=== PATIENT | male | born 1995 | race Caucasian/White ===

== ENCOUNTER → 2019-06-05 15:49 | Outpatient (CLI) | payer BC, SELFPAY ==
--- NOTE | 2019-06-05 | DI.ECHO.S_ITS ---
[facility] +---------+ : : [address] : [place] : : : : [id number] : : : : Phone: [phone]+ Echocardiogram Report + + :Name: PALOMO DARNELL Study Date: 06/05/2019 Height: 72 in : :[facility] Weight: 230 lb : : Gender: Male BSA: 2.3 m2 : :: 1995 Age: 24 yrs BP: 138/96 mmHg: :Reason For Study: AFIB : :Ordering Physician: Bryant Iqbal : :[place] Performed By: Edwar Voss : :Referring: BRYANT COYNE : + + Interpretation Summary 1) Normal left ventricular size, thickness, wall motion, and systolic function (EF 55-60%). 2) Normal right ventricular size and function. 3) No significant valvular abnormalities. 4) No prior Echo available for comparison. Procedure: A two-dimensional transthoracic echocardiogram with color flow and Doppler was performed. The study quality was technically adequate. There is no prior echocardiogram noted for this patient. The patient was in normal sinus rhythm during the exam. Left Ventricle: The left ventricle is normal in size. There is normal left ventricular wall thickness. The ejection fraction is estimated to be 55-60%. Left ventricular systolic function is normal. Left ventricular wall motion is normal. Right Ventricle: The right ventricle is normal in size and function. Atria: The left atrial size is normal. Right atrial size is normal. The interatrial septum is intact with no evidence for an atrial septal defect. Mitral Valve: The mitral valve is normal in structure and function. There is trace mitral regurgitation. Aortic Valve: The aortic valve is trileaflet. The aortic valve opens well. There is no aortic valve stenosis. No aortic regurgitation is present. Tricuspid Valve: The tricuspid valve is normal in structure and function. There is trace tricuspid regurgitation. Right ventricular systolic pressure is estimated to be 6 mmHg plus the clinically estimated CVP which cannot be estimated on this exam. Pulmonic Valve: The pulmonic valve is normal in structure and function. There is trace pulmonic regurgitation. Great Vessels: The aortic root is normal size. The dimensions of the ascending aorta are normal. The pulmonary artery is normal size. The inferior vena cava was not well visualized. Pericardium/ Pleura There is no pericardial effusion. There is no pleural effusion. MMode/2D Measurements & Calculations LVIDd: 5.3 cm LVOT diam: 2.5 cm LVIDs: 3.6 cm Ao root diam: 3.5 cm FS: 32.0 % asc Aorta Diam: 3.0 cm EPSS: 0.95 cm Ao Arch Diam (Prox Trans): 2.7 cm IVSd: 0.97 cm LVPWd: 1.1 cm LV monet. diameter/BSA (cm/m^2): 2.4 LV sys. diameter/BSA (cm/m^2): 1.6 LA A2 area: 16.7 cm2 RA long axis: 4.7 cm LA A4 area: 20.7 cm2 RA area: 15.6 cm2 LA length (vol): 5.5 cm RA vol: 44.1 ml LA vol: 53.2 ml RA : 19.5 ml/m2 LA vol index: 23.5 ml/m2 TAPSE: 2.6 cm Doppler Measurements & Calculations Ao V2 max: 104.1 cm/sec LVOT Max Bry: 82.6 cm/sec Ao V2 mean: 81.2 cm/sec LV V1 max P.7 mmHg Ao max P.3 mmHg LV V1 VTI: 17.7 cm Ao mean P.8 mmHg JOZEF(I,D): 4.3 cm2 Ao V2 VTI: 19.8 cm JOZEF(V,D): 3.8 cm2 sev ratio: 0.89 JOZEF indexed to BSA (cm^2/m^2): 1.9 MV E max bry: 63.1 cm/sec TR max bry: 126.6 cm/sec MV A max bry: 50.7 cm/sec TR max P.4 mmHg MV E/A: 1.2 PA V2 max: 66.0 cm/sec Med Peak E' Bry: 10.6 cm/sec PA V2 mean: 50.5 cm/sec E/E' med: 5.9 PA mean P.1 mmHg Lat Peak E' Bry: 13.5 cm/sec PA Accel Time: 0.13 sec E/E' lat: 4.7 E/e' average: 5.3 MV dec time: 0.21 sec SV(LVOT): 85.0 ml Reading Physician:05:07 PM
== END ==
PROVIDERS: PCP Physician Assistant; Visit Provider Internal Medicine Cardiovascular Disease
DX: I48.0 Paroxysmal atrial fibrillation (principal)
CPT/HCPCS: 93306